=== PATIENT | female | born 1980 | race Caucasian/White ===

== ENCOUNTER 2020-04-28 12:23 | Emergency (ER) | payer OTHER, MEDICAID, SELFPAY ==
[2020-04-28 12:35] VITALS: BP 139/64; PULSE 88; RESP 14; TEMP 36.8; O2SAT 99; BMI 25.8
[2020-04-28 13:04] LABS: Add Manual Diff / Slide Review NO; Basophils Absolute Auto 100 /uL (0-100); Basophils Percent Auto 0.9 % (0-2); Eosinophils Absolute Auto 200 /uL (0-450); Eosinophils Percent Auto 3.3 % (2-4); Hematocrit 38.1 % (36-46); Hemoglobin 12.7 g/dL (12.0-16.0); Lymphocytes Absolute Auto 1200 /uL (1100-4500); Lymphocytes Percent Auto 16.7 % (25-40); Mean Corpuscular HGB Conc 33.3 % (30-36); Mean Corpuscular Hemoglobin 27.3 PG (26-34); Mean Corpuscular Volume 81.9 fL (80-100); Monocytes Absolute Auto 400 /uL (0-900); Monocytes Percent Auto 4.9 % (3-14); Neutrophils Absolute Auto 5300 /uL (1500-7000); Neutrophils Percent Auto 74.2 % (50-75); Platelet Count 191 X10^3/uL (150-400); Red Blood Cell Count 4.65 X10^6/uL (4.0-5.2); Red Cell Distribution Width 14.3 % (11.6-14.8); White Blood Cell Count 7.2 X10^3/uL (4.5-11.0)
[2020-04-28 13:22] LABS: INR 0.9 (0.9-1.3); Prothrombin Time 10.5 SECONDS (10.1-12.7)
[2020-04-28] MEDS: SODIUM CHLORIDE 0.9% 1,000 ML 150 ML IV (13:23)
[2020-04-28 13:25] LABS: Alanine Aminotransferase 19 IU/L (<35); Albumin 4.3 g/dL (3.5-5.0); Albumin Globulin Ratio 1.6 (1.0-2.8); Alkaline Phosphatase 42 U/L (38-126); Aspartate Aminotransferase 25 IU/L (14-36); BUN Creatinine Ratio 29.6 (6-22); Bilirubin Total 0.3 mg/dL (0.2-1.3); Blood Urea Nitrogen 21 mg/dL (7-17); Calcium 9.4 mg/dL (8.4-10.2); Carbon Dioxide 29 mmol/L (22-32); Chloride 105 mmol/L (98-107); Estimated Glomerular Filt Rate > 60.0 mL/min (>60); Globulin 2.7 g/dL (1.7-4.1); Glucose 112 mg/dL (70-100); HEMOLYSIS < 15 (0-50); Lipase 40 U/L (23-300); PTT Partial Thromboplastin Tim 34 SECONDS (26.4-36.2); Potassium 3.8 mmol/L (3.4-5.1); Sodium 139 mmol/L (137-145)
[2020-04-28 13:29] LABS: Lactate (Lactic Acid) 1.1 mmol/L (0.7-2.1)
--- NOTE | 2020-04-28 13:32 | ED.ABDPAIN ---
HPI - Abdominal Pain <Hay Scruggs [facility] - Last Filed: 04/28/20 15:49> General Chief Complaint: Abdominal Pain Stated Complaint: Whole Torso in Pain Time Seen by Provider: 04/28/20 12:54 Source: patient Mode of arrival: Ambulatory Limitations: no limitations History of Present Illness HPI narrative: This is a 40 year female, smoker, who has past medical history significant for substance abuse and alcohol dependency presents to ED with chief complain of abdominal pain. Patient denies associated symptoms as nausea, vomiting, fever or chills. Patient reports pain is mostly in right lower and mid abdomen and describes as sharp, aching, tightness, abdominal fullness and rates as 7/10 and constant. Patient denies chest pain, dyspnea, near syncope, or urinary symptoms. Patient reports has been drinking hard liquor 1/5 last 6 months. Prior to this patient usually drinks daily but not as much this. Patient also reports smoking meth regularly. Patient reports her bowel habits every other day and denies diarrhea or constipation. Patient reports had similar abdominal discomfort in the past for last 2 years and sporadically. Patient denies aggravating or relieving factors. Patient denies via. LMP 3 weeks ago and lasted only for 2 days. Patient reports prior to this she had menstruation 2 month ago. Patient reports usually she is very regular with menstruation and this is unusual for her. She had eaten 1 hour ago pizza and drank water right before coming into ED. last alcohol ingestion noon yesterday. Related Data Allergies Allergy/AdvReac Type Severity Reaction Status Date / Time No Known Drug Allergies Allergy Verified 04/28/20 12:44 Review of Systems <Hay Sheba [facility] - Last Filed: 04/28/20 15:49> Review of Systems Narrative: General: Denies fever, chills, fatigue, malaise, sweats. HEENT: Denies sinus pain, ear pain, sore throat, difficulty swallowing, dizziness. Respiratory: Denies dyspnea, cough, wheezing, hemoptysis, sputum. Cardiovascular: Denies chest pain, palpitations, orthopnea, edema. Gastrointestinal: Denies nausea, vomiting, abdominal pain, diarrhea, constipation, melena. : See HPI Musculoskeletal: Denies weakness, joint pain or bony pain. Skin: Denies rash, skin lesions, or other. Neurologic: Denies weakness, headache, numbness, change in speech, confusion, seizures, incoordination. Psychiatric: No concerning psychosocial issues. 12-point review of systems is negative except for those stated above. Patient History <MICAH Reynaga - Last Filed: 04/28/20 15:49> Social History Smoking Status: Current every day smoker Smoking Status: Current every day smoker alcohol intake frequency: 3 or more drinks per day Alcohol type: hard liquor Substance Use Type: methamphetamine Exam <[facility] MICAH Scruggs - Last Filed: 04/28/20 15:49> Narrative Exam Narrative: GEN: Alert, oriented x 3, well appearing and nourished, and in no acute distress. Head: Normal cephalic, atraumatic. No scalp or temporal tenderness, palpable mass or rash. EYES: Pupils are equal, round, and reactive to light and accommodation. Extraocular muscles are intact bilaterally. There is no subconjunctival hemorrhage, exudate and sclera non-icteric. ENT: Hearing grossly intact. Nose without bleeding, purulent discharge or deviation. Mucous membrane moist, no mucosal lesion. Throat without erythema, tonsillar hypertrophy or exudate. Uvula in midline, airway patent. Neck: Trachea in midline. No JVD, non-tender without lymphadenopathy. No masses or thyroid megaly. Supple, non-tender and no meningeal signs. CARDIAC: Normal regular rate and rhythm without murmurs, gallops, or rubs. No chest wall tenderness. No peripheral edema, cyanosis or pallor. Capillary refill is less than 2 seconds. RESPIRATORY: Lungs are clear to auscultate bilaterally. No cough, wheezes, rales, or rhonchi. No stridor, respiratory distress, increase work of breathing, or accessary muscle used. ABD: Abdomen soft and non-distended. Tender to palpate bilateral lower abdomen, mid right abdomen. No guarding or rebound tenderness to palpate. Bowel sounds are normal in all 4 quadrants. There is no palpable masses or organomegaly. EXT: Full painless ROM of all extremities with no loss of sensation, strength, effusion or edema. SKIN: Warm, dry, normal color for patient. No erythema, lesions or rash over visible areas. BACK: No deformity or crepitance. Right flank tenderness to percuss. NEUROLOGICAL: Alert and oriented to place, time and person. Sensation and motor function intact bilaterally. No facial droops, dysphasia. PSYCHIATRIC: Good judgement and reason, without hallucinations, abnormal affect or abnormal behaviors during the examination. Patient is not suicidal. Initial Vital Signs Initial Vital Signs: Vital Signs Temperature 98.2 F 04/28/20 12:35 Pulse Rate 88 04/28/20 12:35 Respiratory Rate 14 04/28/20 12:35 Blood Pressure 139/64 04/28/20 12:35 Pulse Oximetry 99 04/28/20 12:35 <Ryan Ingram DO - Last Filed: 04/28/20 15:53> Initial Vital Signs Initial Vital Signs: Vital Signs Temperature 98.2 F 04/28/20 12:35 Pulse Rate 88 04/28/20 12:35 Respiratory Rate 14 04/28/20 12:35 Blood Pressure 139/64 04/28/20 12:35 Pulse Oximetry 99 04/28/20 12:35 Scores <Hay UriosteguiJOANA StreetP - Last Filed: 04/28/20 15:49> GCS [place] coma scale eye opening: Spontaneous [place] coma scale verbal response: Orientated [place] coma scale motor response: Obey commands [place] coma scale total score: 15 qSOFA Altered Mental Status (GCS <15): No Respiratory rate greater than/equal to 22: No Systolic blood pressure less than or equal to 100: No qSOFA Total: 0 0-1 Not High Risk 1-3 High risk Course <Hay UriosteguiJOANA CastroP - Last Filed: 04/28/20 15:49> Orders Ordered: ED Orders 04/28/20 12:44 EKG-12 Lead Stat 04/28/20 12:54 Complete Blood Count AUTO DIFF Stat Comprehensive Metabolic Panel Stat Lactate (Lactic Acid) Stat Lipase Stat Partial Thromboplastin Time Stat Prothrombin Time INR Stat 04/28/20 13:35 CT abdomen pelvis w con Stat Discontinued Medications Sodium Chloride (Normal Saline 0.9%) 1,000 mls @ 150 mls/hr IV CONT YAYA Last Infusion: 04/28/20 14:59 Dose: 150 mls/hr Documented by: Admin: 04/28/20 13:23 Dose: 150 mls/hr Documented by: CHANELL Reevaluation(s) Reevaluation #1: Dr. Shepard ([facility]) called to inform incidental finding of moderate left common iliac artery stenosis. Patient denies leg pain at rest or with ambulation or exertions at this time. Patient reports decreasing sensation at times. Patient informed of CT findings of above and advised to follow up with primary care physician and further evaluation for moderate left common iliac artery stenosis which would progress. Patient advised to decrease meth, alcohol, smoking to help with this condition. Time: 14:10 Vital Signs Vital signs: Vital Signs - 8 hr 04/28/20 12:35 04/28/20 15:00 Temperature 98.2 F Pulse Rate 88 80 Respiratory Rate 14 Blood Pressure 139/64 123/61 Pulse Oximetry 99 100 <Ryan Ingram DO - Last Filed: 04/28/20 15:53> Orders Ordered: ED Orders 04/28/20 12:44 EKG-12 Lead Stat 04/28/20 12:54 Complete Blood Count AUTO DIFF Stat Comprehensive Metabolic Panel Stat Lactate (Lactic Acid) Stat Lipase Stat Partial Thromboplastin Time Stat Prothrombin Time INR Stat 04/28/20 13:35 CT abdomen pelvis w con Stat Discontinued Medications Sodium Chloride (Normal Saline 0.9%) 1,000 mls @ 150 mls/hr IV CONT YAYA Last Infusion: 04/28/20 14:59 Dose: 150 mls/hr Documented by: Admin: 04/28/20 13:23 Dose: 150 mls/hr Documented by: CHANELL Vital Signs Vital signs: Vital Signs - 8 hr 04/28/20 12:35 04/28/20 15:00 Temperature 98.2 F Pulse Rate 88 80 Respiratory Rate 14 Blood Pressure 139/64 123/61 Pulse Oximetry 99 100 MDM - Abdominal Pain <MICAH Reynaga - Last Filed: 04/28/20 15:49> Differential Diagnosis Differential diagnosis: Likely abdominal pain, acute appendicitis, calculus of kidney, constipation, small bowel obstruction and other (Hepatic disease, gallbladder disease, kidney infection) Medical Records Attestation: I reviewed the patient's medical records. Lab Data Attestation: I reviewed the patient's lab results. Result diagrams: 04/28/20 12:54 04/28/20 12:54 Labs: Lab Results 04/28/20 04/28/20 04/28/20 Range/Units 12:54 12:54 12:54 WBC 7.2 (4.5-11.0) X10^3/uL RBC 4.65 (4.0-5.2) X10^6/uL Hgb 12.7 (12.0-16.0) g/dL Hct 38.1 (36-46) % MCV 81.9 (80-100) fL MCH 27.3 (26-34) PG MCHC 33.3 (30-36) % RDW 14.3 (11.6-14.8) % Plt Count 191 (150-400) X10^3/uL Neut % (Auto) 74.2 (50-75) % Lymph % (Auto) 16.7 L (25-40) % Will % (Auto) 4.9 (3-14) % Eos % (Auto) 3.3 (2-4) % Baso % (Auto) 0.9 (0-2) % Neut # (Auto) 5300 (3480-3124) /uL Lymph # (Auto) 1200 (3046-8535) /uL Will # (Auto) 400 (0-900) /uL Eos # (Auto) 200 (0-450) /uL Baso # (Auto) 100 (0-100) /uL PT 10.5 (10.1-12.7) SECONDS INR 0.9 (0.9-1.3) APTT 34 (26.4-36.2) SECONDS Sodium 139 (137-145) mmol/L Potassium 3.8 (3.4-5.1) mmol/L Chloride 105 (98-107) mmol/L Carbon Dioxide 29 (22-32) mmol/L BUN 21 H (7-17) mg/dL Creatinine 0.71 (0.52-1.04) mg/dL Estimated GFR > 60.0 (>60) mL/min BUN/Creatinine Ratio 29.6 H (6-22) Glucose 112 H (70-100) mg/dL Lactate (0.7-2.1) mmol/L Calcium 9.4 (8.4-10.2) mg/dL Total Bilirubin 0.3 (0.2-1.3) mg/dL AST 25 (14-36) IU/L ALT 19 (<35) IU/L Alkaline Phosphatase 42 (38-126) U/L Total Protein 7.0 (6.3-8.2) g/dL Albumin 4.3 (3.5-5.0) g/dL Globulin 2.7 (1.7-4.1) g/dL Albumin/Globulin Ratio 1.6 (1.0-2.8) Lipase 40 (23-300) U/L 12// Range/Units 12:54 WBC (4.5-11.0) X10^3/uL RBC (4.0-5.2) X10^6/uL Hgb (12.0-16.0) g/dL Hct (36-46) % MCV (80-100) fL MCH (26-34) PG MCHC (30-36) % RDW (11.6-14.8) % Plt Count (150-400) X10^3/uL Neut % (Auto) (50-75) % Lymph % (Auto) (25-40) % Will % (Auto) (3-14) % Eos % (Auto) (2-4) % Baso % (Auto) (0-2) % Neut # (Auto) (8169-5672) /uL Lymph # (Auto) (9275-2464) /uL Will # (Auto) (0-900) /uL Eos # (Auto) (0-450) /uL Baso # (Auto) (0-100) /uL PT (10.1-12.7) SECONDS INR (0.9-1.3) APTT (26.4-36.2) SECONDS Sodium (137-145) mmol/L Potassium (3.4-5.1) mmol/L Chloride (98-107) mmol/L Carbon Dioxide (22-32) mmol/L BUN (7-17) mg/dL Creatinine (0.52-1.04) mg/dL Estimated GFR (>60) mL/min BUN/Creatinine Ratio (6-22) Glucose (70-100) mg/dL Lactate 1.1 (0.7-2.1) mmol/L Calcium (8.4-10.2) mg/dL Total Bilirubin (0.2-1.3) mg/dL AST (14-36) IU/L ALT (<35) IU/L Alkaline Phosphatase (38-126) U/L Total Protein (6.3-8.2) g/dL Albumin (3.5-5.0) g/dL Globulin (1.7-4.1) g/dL Albumin/Globulin Ratio (1.0-2.8) Lipase (23-300) U/L Point of care testing: Point of Care Testing Test Results Negative Urine Dip Bedside Urine Glucose Negative Bedside Urine Bilirubin - Negative Bedside Urine Ketone - Negative Urine Specific Burkett 1.025 Bedside Urine Occult Blood - Negative Bedside Urine Protein - Negative Bedside Urine Urobilinogen - Negative Bedside Urine Nitrite - Negative Bedside Urine Leukocytes - Negative Esterase Imaging Data CT scan - abdomen/pelvis: Radiologist's Impression: Shabbir Ibarra 40 F [address] [id number] Scan ReportSigned Patient: Shabbir Ibarra LMR#: [id number]: 1980Acct:[id number]/Sex: 40 / FDate of Service: 04/28/20Loc: EDAccession Number: [id number] Procedure: CT abdomen pelvis w con Ordering Provider: Hay Scruggs PROCEDURE: CT ABDOMEN PELVIS W CON INDICATIONS: bilateral lower abd and right upper/mid abd pain TECHNIQUE: After the administration of intravenous contrast, 5 mm thick sections acquired from the diaphragm to the symphysis. 5 mm coronal and sagittal reformats were acquired. For radiation dose reduction, the following was used: automated exposure control, adjustment of mA and/or kV according to patient size. COMPARISON: None. FINDINGS: Image quality: Excellent. ABDOMEN: Lung bases: Lung bases are clear. Heart size is normal. Solid organs: Liver is normal in size and enhancement. Gallbladder is contracted, within normal limits. Biliary system is non dilated. Pancreas enhances normally. Spleen is normal in size and enhancement. No adrenal nodules. Kidneys demonstrate normal size and enhancement, without hydronephrosis. Peritoneum and bowel: Bowel loops demonstrate normal wall thickness and caliber. Physiologic fluid in the pelvis. No free air or abscess. Large amount of fecal debris throughout the colon. Fecalized small bowel contents. Nodes and vessels: No retroperitoneal or mesenteric adenopathy by size criteria. Aorta and inferior vena cava are normal in size. Incidental note made moderate left common iliac artery stenosis. Miscellaneous: No ventral hernias. PELVIS: Genitourinary: Bladder wall thickness is normal. Miscellaneous: Tiny bilateral inguinal hernias containing fat. No inguinal adenopathy. Bones: No suspicious bony lesions. No vertebral body compression fractures. IMPRESSION: 1. Large fecal load and fecalization bowel contents is consistent with constipation and slow bowel transit. 2. Note made of moderate left common iliac artery stenosis. Question: Does this young patient lifestyle limiting claudication? 3. Minimal bilateral inguinal hernias containing fat. 4. No evidence of acute abdominal process. Dictated by: Scott Perez M.D. on 04/28/2020 at 13:51 Approved by: Scott Perez M.D. on 04/28/2020 at 14:00 ECG Data Attestation: I personally reviewed and interpreted this ECG as follows: Prior ECG tracings: not available for review Interpretation: Normal sinus rhythm rate at 71. Normal axis. GA interval 180, QRS duration 82, QT/QTC 388/[address] changes. MDM Narrative Medical decision making narrative: This is a 40 year female who presents to ED with her son with chief complain of generalized abdominal pain which is tender to palpate, right flank pain without much associated symptoms. Abdomen tender to palpate in bilateral lower and right mid and upper quadrant pain. Patient has been drinking alcohol 1/5th daily for last 6 months and smokes meth regularly. Patient does not appears to be toxic. She is in afebrile with within normal vital signs. No leukocytosis. Negative and lactate. Chemistry indicates mild dehydration with elevated BUN of 21 and BUN/creatinine ratio of 29.6. Slightly elevated nonfasting glucose of 112. Within normal liver function test and kidney function test. Lipase was normal. Urine test was negative for and infection. CT of abdomen and pelvis indicates constipation and incidental finding of moderate left common iliac artery stenosis. There is minimal bilateral inguinal hernia containing fat as well. Patient denies leg pain at rest or with exertion. Patient advised to increase fiber, oral hydration, activity and try [id number] magnesium citrate and or MiraLax to prevent and manage constipation. Strict return precautions were discussed with patient and informed patient to follow-up in outpatient setting for moderate left common iliac artery stenosis with PCP. Patient verbalized understanding in agreement with the treatment plan. <Ryan Ingram, DO - Last Filed: 04/28/20 15:53> Lab Data Labs: Lab Results 04/28/20 04/28/20 04/28/20 Range/Units 12:54 12:54 12:54 WBC 7.2 (4.5-11.0) X10^3/uL RBC 4.65 (4.0-5.2) X10^6/uL Hgb 12.7 (12.0-16.0) g/dL Hct 38.1 (36-46) % MCV 81.9 (80-100) fL MCH 27.3 (26-34) PG MCHC 33.3 (30-36) % RDW 14.3 (11.6-14.8) % Plt Count 191 (150-400) X10^3/uL Neut % (Auto) 74.2 (50-75) % Lymph % (Auto) 16.7 L (25-40) % Will % (Auto) 4.9 (3-14) % Eos % (Auto) 3.3 (2-4) % Baso % (Auto) 0.9 (0-2) % Neut # (Auto) 5300 (8413-9718) /uL Lymph # (Auto) 1200 (1895-7441) /uL Will # (Auto) 400 (0-900) /uL Eos # (Auto) 200 (0-450) /uL Baso # (Auto) 100 (0-100) /uL PT 10.5 (10.1-12.7) SECONDS INR 0.9 (0.9-1.3) APTT 34 (26.4-36.2) SECONDS Sodium 139 (137-145) mmol/L Potassium 3.8 (3.4-5.1) mmol/L Chloride 105 (98-107) mmol/L Carbon Dioxide 29 (22-32) mmol/L BUN 21 H (7-17) mg/dL Creatinine 0.71 (0.52-1.04) mg/dL Estimated GFR > 60.0 (>60) mL/min BUN/Creatinine Ratio 29.6 H (6-22) Glucose 112 H (70-100) mg/dL Lactate (0.7-2.1) mmol/L Calcium 9.4 (8.4-10.2) mg/dL Total Bilirubin 0.3 (0.2-1.3) mg/dL AST 25 (14-36) IU/L ALT 19 (<35) IU/L Alkaline Phosphatase 42 (38-126) U/L Total Protein 7.0 (6.3-8.2) g/dL Albumin 4.3 (3.5-5.0) g/dL Globulin 2.7 (1.7-4.1) g/dL Albumin/Globulin Ratio 1.6 (1.0-2.8) Lipase 40 (23-300) U/L 12// Range/Units 12:54 WBC (4.5-11.0) X10^3/uL RBC (4.0-5.2) X10^6/uL Hgb (12.0-16.0) g/dL Hct (36-46) % MCV (80-100) fL MCH (26-34) PG MCHC (30-36) % RDW (11.6-14.8) % Plt Count (150-400) X10^3/uL Neut % (Auto) (50-75) % Lymph % (Auto) (25-40) % Will % (Auto) (3-14) % Eos % (Auto) (2-4) % Baso % (Auto) (0-2) % Neut # (Auto) (8421-4462) /uL Lymph # (Auto) (4981-1787) /uL Will # (Auto) (0-900) /uL Eos # (Auto) (0-450) /uL Baso # (Auto) (0-100) /uL PT (10.1-12.7) SECONDS INR (0.9-1.3) APTT (26.4-36.2) SECONDS Sodium (137-145) mmol/L Potassium (3.4-5.1) mmol/L Chloride (98-107) mmol/L Carbon Dioxide (22-32) mmol/L BUN (7-17) mg/dL Creatinine (0.52-1.04) mg/dL Estimated GFR (>60) mL/min BUN/Creatinine Ratio (6-22) Glucose (70-100) mg/dL Lactate 1.1 (0.7-2.1) mmol/L Calcium (8.4-10.2) mg/dL Total Bilirubin (0.2-1.3) mg/dL AST (14-36) IU/L ALT (<35) IU/L Alkaline Phosphatase (38-126) U/L Total Protein (6.3-8.2) g/dL Albumin (3.5-5.0) g/dL Globulin (1.7-4.1) g/dL Albumin/Globulin Ratio (1.0-2.8) Lipase (23-300) U/L Point of care testing: Point of Care Testing Test Results Negative Urine Dip Bedside Urine Glucose Negative Bedside Urine Bilirubin - Negative Bedside Urine Ketone - Negative Urine Specific Burkett 1.025 Bedside Urine Occult Blood - Negative Bedside Urine Protein - Negative Bedside Urine Urobilinogen - Negative Bedside Urine Nitrite - Negative Bedside Urine Leukocytes - Negative Esterase Discharge Plan Departure Patient Disposition: Home Clinical Impression: Iliac artery stenosis, left Abdominal pain Qualifiers: Abdominal location: unspecified location Qualified Code(s): R10.9 - Unspecified abdominal pain Constipation Qualifiers: Constipation type: unspecified constipation type Qualified Code(s): K59.00 - Constipation, unspecified Instructions: DI for Abdominal Pain-Adult, DI for Constipation Activity Restrictions/Additional Instructions: You have been diagnosed with [abdominal pain likely from constipation. Labs are assuring including urine test. Urine test Was negative. Abdomen/pelvis CT test indicates constipation, tiny fat containing inguinal hernia. Incidental finding of moderate left common iliac artery stenosis which can cause left leg pain with working out, or ambulation. Currently you do not have pain with the activities or at rest but this should be followed up in outpatient setting that can be arranged by primary care provider.]. What to do: *Take your medications as directed. Please try use magnesium citrate and or MiraLax until you have good bowel movements. Please increase oral hydration and fiber in her diet. Please refrain from using alcohol and drugs. *Follow up with your primary care provider in 2-3 days, call for an appointment. Let them know you were seen in the ED and that we asked you to be seen in follow up. *Return to ED if you have any new, worsening, or concerning symptoms, such as [chest pain, breathing difficulty, unable to tolerate fluids, fever, worsening pain, or any acute concerns]. Referrals: [facility] Resources [Outside] <Ryan Ingram, DO - Last Filed: 04/28/20 15:53> [facility] Attestation: Dr Ingram Co-Sign Statement: I was available for consultation during this patient's emergency department visit. This chart is signed by myself for administrative purposes only. I did not have direct contact with this patient during this visit. They were seen independently by the APC.
--- NOTE | 2020-04-28 13:35 | DI.CT.S_ITS ---
PROCEDURE: CT ABDOMEN PELVIS W CON INDICATIONS: bilateral lower abd and right upper/mid abd pain TECHNIQUE: After the administration of intravenous contrast, 5 mm thick sections acquired from the diaphragm to the symphysis. 5 mm coronal and sagittal reformats were acquired. For radiation dose reduction, the following was used: automated exposure control, adjustment of mA and/or kV according to patient size. COMPARISON: None. FINDINGS: Image quality: Excellent. ABDOMEN: Lung bases: Lung bases are clear. Heart size is normal. Solid organs: Liver is normal in size and enhancement. Gallbladder is contracted, within normal limits. Biliary system is non dilated. Pancreas enhances normally. Spleen is normal in size and enhancement. No adrenal nodules. Kidneys demonstrate normal size and enhancement, without hydronephrosis. Peritoneum and bowel: Bowel loops demonstrate normal wall thickness and caliber. Physiologic fluid in the pelvis. No free air or abscess. Large amount of fecal debris throughout the colon. Fecalized small bowel contents. Nodes and vessels: No retroperitoneal or mesenteric adenopathy by size criteria. Aorta and inferior vena cava are normal in size. Incidental note made moderate left common iliac artery stenosis. Miscellaneous: No ventral hernias. PELVIS: Genitourinary: Bladder wall thickness is normal. Miscellaneous: Tiny bilateral inguinal hernias containing fat. No inguinal adenopathy. Bones: No suspicious bony lesions. No vertebral body compression fractures. IMPRESSION: 1. Large fecal load and fecalization bowel contents is consistent with constipation and slow bowel transit. 2. Note made of moderate left common iliac artery stenosis. Question: Does this young patient lifestyle limiting claudication? 3. Minimal bilateral inguinal hernias containing fat. 4. No evidence of acute abdominal process. Dictated by: Scott Perez M.D. on 04/28/2020 at 13:51 Approved by: Scott Perez M.D. on 04/28/2020 at 14:00
[2020-04-28 15:00] VITALS: BP 123/61; PULSE 80; O2SAT 100
== END 2020-04-28 15:01 | disposition home or self-care (01) ==
PROVIDERS: Emergency Medicine; Emergency Provider Nurse Practitioner Family
DX: I77.1 Stricture of artery (principal); R10.9 Unspecified abdominal pain; K59.00 Constipation, unspecified
CPT/HCPCS: 36415; 74177; 80053; 81003; 81025; 83605; 83690; 85025; 85610; 85730; 93005; 93010; 96360; 96361; 99284

== ENCOUNTER 2020-09-03 08:49 | Emergency (ER) | payer OTHER, MEDICAID, SELFPAY ==
[2020-09-03 09:13] VITALS: BP 122/59; BP 122/69; PULSE 80; RESP 12; RESP 16; TEMP 36.7; TEMP 37.2; O2SAT 97
--- NOTE | 2020-09-03 09:13 | ED.EXTPRO ---
HPI - Extremity Problem General Chief complaint: Extremity Injury, Lower Stated complaint: Left foot pinky toe blister Time Seen by Provider: 09/03/20 09:10 Source: patient Mode of arrival: Ambulatory Limitations: no limitations History of Present Illness HPI Narrative: This is a 40-year-old female comes with complaint of left pinky toe pain as well as swelling and a blister between the 5th and 4th digits on her left foot. Patient states that she noticed itching recently she has been using Lotrimin spray the last 3 or 4 days with no improvement in the itching. She states that she developed a blister on the inside of her toe and today noticed some redness of the toe as well as spreading onto the dorsum of her foot. She had some sensation of numbness and tingling in that area as well. Patient states uncomfortable to walk. She denies any skin infections in the past. She denies any medical issues. She denies any diabetes or sugar issues. She is not on any medications regularly. She does smoke daily. Patient does not have a primary care physician she follows with regularly. Patient states her tetanus is up-to-date. She does not recall any trauma or injuries. She did note a little bit of breakdown of the skin prior to the development of her blister. Related Data Previous Rx's Medication Instructions Recorded sulfamethoxazole-trimethoprim 1 tab PO Q12H #14 tab 09/03/20 [Bactrim DS] Allergies Allergy/AdvReac Type Severity Reaction Status Date / Time No Known Drug Allergies Allergy Verified 04/28/20 12:44 Review of Systems Review of Systems ROS Unobtainable: All systems reviewed & are unremarkable except as noted in HPI and below Patient History Social History Smoking Status: Current every day smoker Smoking Status: Current every day smoker alcohol intake frequency: 3 or more drinks per day Alcohol type: hard liquor Substance Use Type: methamphetamine Exam Narrative Exam Narrative: GENERAL: Alert and oriented x three, well-nourished female in mild distress. HEENT: Head normocephalic, atraumatic, EOMI, pupils reactive, face symmetric, moist mucous membranes NECK: Supple, full range of motion CARDIOVASCULAR: Regular rate and rhythm without murmurs, rubs or gallops. RESPIRATORY: Breath sounds equal bilaterally, no wheezes rales or rhonchi. ABDOMEN: Soft, nontender. Normoactive bowel sounds all 4 quadrants. No guarding or rebound, rigidity, no mass EXTREMITIES: Normal range of motion, no clubbing. Neurovascularly intact. No specific bony tenderness but patient is tender in the 5th digit of her left foot. No obvious deformity. There is some mild erythema of the 5th digit as well as about 3 cm extending towards the dorsum of the foot. Patient has some breakdown and scalloping of the skin on the lateral side of the 4th digit as well as some swelling and a blister with fluctuance and what appears to be purulence white fluid within the blister on the medial side of the 5th digit. Patient does have tenderness between the toes. There is no active drainage at this time. NEUROLOGICAL: Cranial nerves II through XII grossly intact. Moving all extremities SKIN: Warm, dry, no petechiae, no rashes or lesions otherwise noted. Initial Vital Signs Initial Vital Signs: Vital Signs Temperature 98.0 F 09/03/20 09:13 Pulse Rate 80 09/03/20 09:13 Respiratory Rate 12 09/03/20 09:13 Blood Pressure 122/69 09/03/20 09:13 Pulse Oximetry 97 09/03/20 09:13 Procedures Abscess I/D I&D #1: Site: other (abscess between 4/5 digits on left foot.) Local Anesthetic: other anesthetic (Topical prilocaine ) Technique: needle aspiration Amount of fluid expressed (mL): 0.25 Irrigation: Yes Course Orders Ordered: Discontinued Medications Lidocaine/Prilocaine (Lidocaine/Prilocaine 5 Gm) 5 gm TOP NOW ONE Stop: 09/03/20 09:19 Last Admin: 09/03/20 09:22 Dose: 5 gm Documented by: WILL Vital Signs Vital signs: Vital Signs - 8 hr 09/03/20 10:48 Pulse Rate 63 Respiratory Rate 18 Blood Pressure 133/63 Pulse Oximetry 97 MDM - Extremity (Nontraumatic) Imaging Data Extremity x-ray #1: Radiologist's Impression: [address] [id number] ReportSigned Patient: Shabbir Ibarra LMR#: [id number]: 1980Acct:[id number]/Sex: 40 / FDate of Service: 09/03/20Loc: EDAccession Number: [id number] Procedure: XR toe LT min 2V Ordering Provider: Ivon Sellers D.O. PROCEDURE: XR TOE LT MIN 2V INDICATIONS: 5th toe, swelling, redness, ? trauma, + infection TECHNIQUE: 3 views of the 5th toe(s) acquired. COMPARISON: None. FINDINGS: Bones: No fractures or dislocations. No suspicious bony lesions. There is mild hallux valgus with mild degenerative changes of the 1st metatarsophalangeal joint. Soft tissues: Mild soft tissue swelling along the lateral aspect of the foot along the proximal aspect of the 5th toe. There is mild soft tissue prominence overlying the distal 1st metatarsal. IMPRESSION: Mild soft tissue swelling overlying the 5th digit without underlying acute osseous abnormality. Mild hallux valgus with mild degenerative changes of the 1st metatarsophalangeal joint and soft tissue bunion formation. Dictated by: Ryley Perea D.O. on 09/03/2020 at 8:32 Approved by: Ryley Perea D.O. on 09/03/2020 at 8:38 MDM Narrative Medical decision making narrative: 40-year-old female with fluctuant fluid filled blister that appears to be purulence with a likely bacterial infection that developed from a tinea pedis. Patient did not have any known trauma but is significantly tender an x-ray was ordered as she has some erythema and cellulitis tracking up her foot. Patient a topical xylocaine and the blister was lanced to allow drainage. Patient was started on oral antibiotics. We also discussed that she should allow the foot to be open to air, to wear open toed shoes and at most cotton socks which are changed regularly to improve healing. Discharge Plan Departure Patient Disposition: Home Clinical Impression: Cellulitis and abscess of toe of left foot Instructions: DI for Cellulitis -- Adult Activity Restrictions/Additional Instructions: Follow up in the next 5-7 days if you are not having significant improvement. May take Tylenol up to a 1000 mg every 8 hours and or ibuprofen up to 800 mg every 8 hours. Take antibiotics until completely gone. Prescription to [facility] in [place] You may soak area 1-2 times daily. Keep the area open to air and use either open toed shoes. If you need to wear sockscotton is preferred Return for fevers greater 100.4 F, increasing redness, swelling, rapidly worsening pain, increasing drainage, new discoloration such as pallor or cyanosis/white or blue discoloration, new numbness, weakness or other new or concerning symptoms. Prescriptions: New sulfamethoxazole-trimethoprim [Bactrim DS] 800-160 mg tablet 1 tab PO Q12H Qty: 14 RF: 0
--- NOTE | 2020-09-03 09:18 | DI.RAD.S_ITS ---
PROCEDURE: XR TOE LT MIN 2V INDICATIONS: 5th toe, swelling, redness, ? trauma, + infection TECHNIQUE: 3 views of the 5th toe(s) acquired. COMPARISON: None. FINDINGS: Bones: No fractures or dislocations. No suspicious bony lesions. There is mild hallux valgus with mild degenerative changes of the 1st metatarsophalangeal joint. Soft tissues: Mild soft tissue swelling along the lateral aspect of the foot along the proximal aspect of the 5th toe. There is mild soft tissue prominence overlying the distal 1st metatarsal. IMPRESSION: Mild soft tissue swelling overlying the 5th digit without underlying acute osseous abnormality. Mild hallux valgus with mild degenerative changes of the 1st metatarsophalangeal joint and soft tissue bunion formation. Dictated by: Ryley Perea D.O. on 09/03/2020 at 8:32 Approved by: Ryley Perea D.O. on 09/03/2020 at 8:38
[2020-09-03] MEDS: LIDOCAINE/PRILOCAINE 5 GM TOP (09:22)
--- NOTE | 2020-09-03 09:44 | PC.NURSE ---
Patient reports placing her boot on about 5 days ago feeling sharp pain in between 4th and 5th toe. Pain continues to get worse. Redness noted to top of foot by fifth digit. Small abscess noted in between 4th/5th
[2020-09-03 10:48] VITALS: BP 133/63; PULSE 63; RESP 18; O2SAT 97
== END 2020-09-03 10:48 | disposition home or self-care (01) ==
PROVIDERS: Emergency Provider Emergency Medicine
DX: L03.032 Cellulitis of left toe (principal)
CPT/HCPCS: 10060; 73660; 99282; 99283

== ENCOUNTER 2020-11-01 17:00 | Emergency (ER) | payer OTHER, MEDICAID, SELFPAY ==
[2020-11-01 17:04] VITALS: BP 125/70; PULSE 86; RESP 20; TEMP 36.8; O2SAT 97; BMI 23.6
[2020-11-01 17:45] LABS: Amorphous Sediment Urine 1+; Bacteria Urine Many (>30); Culture Indicated Urine Specimen Cultured; Mucus Urine 1+ (Negative); RBC Urine 0-1/HPF (0-5/HPF); Squamous Epithelial Cell Urine 0-1 /HPF (0-5/HPF); WBC Urine 10-30/HPF (0-5/HPF)
== END 2020-11-01 18:40 | disposition left against medical advice (07) ==
PROVIDERS: Emergency Provider Emergency Medicine
DX: R39.9 Unspecified symptoms and signs involving the genitourinary system (principal)
CPT/HCPCS: 81003; 81015; 87077; 87086; 87186; 99281

== ENCOUNTER 2020-11-16 10:27 | Emergency (ER) | payer OTHER, MEDICAID, SELFPAY ==
[2020-11-16 11:16] VITALS: BP 135/87; PULSE 78; RESP 17; TEMP 36.6; O2SAT 96
[2020-11-16 11:41] LABS: Add Manual Diff / Slide Review NO; Basophils Absolute Auto 0 /uL (0-100); Basophils Percent Auto 0.5 % (0-2); Eosinophils Absolute Auto 200 /uL (0-450); Eosinophils Percent Auto 2.1 % (2-4); Hematocrit 37.5 % (36-46); Hemoglobin 12.3 g/dL (12.0-16.0); Lymphocytes Absolute Auto 900 /uL (1100-4500); Lymphocytes Percent Auto 12.7 % (25-40); Mean Corpuscular HGB Conc 32.9 % (30-36); Mean Corpuscular Hemoglobin 26.9 PG (26-34); Mean Corpuscular Volume 81.8 fL (80-100); Monocytes Absolute Auto 400 /uL (0-900); Neutrophils Absolute Auto 5700 /uL (1500-7000); Neutrophils Percent Auto 78.7 % (50-75); Platelet Count 181 X10^3/uL (150-400); Red Blood Cell Count 4.58 X10^6/uL (4.0-5.2); Red Cell Distribution Width 14.4 % (11.6-14.8); White Blood Cell Count 7.2 X10^3/uL (4.5-11.0)
[2020-11-16 11:56] LABS: Alanine Aminotransferase 26 IU/L (<35); Albumin 4.6 g/dL (3.5-5.0); Albumin Globulin Ratio 1.5 (1.0-2.8); Alkaline Phosphatase 53 U/L (38-126); Aspartate Aminotransferase 31 IU/L (14-36); BUN Creatinine Ratio 20.3 (6-22); Bilirubin Total 0.6 mg/dL (0.2-1.3); Blood Urea Nitrogen 15 mg/dL (7-17); Calcium 9.5 mg/dL (8.4-10.2); Carbon Dioxide 28 mmol/L (22-32); Chloride 104 mmol/L (98-107); Creatine Kinase 170 U/L (30-135); Estimated Glomerular Filt Rate > 60.0 mL/min (>60); Globulin 3.1 g/dL (1.7-4.1); Glucose 101 mg/dL (70-100); HEMOLYSIS < 15 (0-50); Potassium 3.3 mmol/L (3.4-5.1); Sodium 139 mmol/L (137-145); Total Protein 7.7 g/dL (6.3-8.2)
[2020-11-16] MEDS: SODIUM CHLORIDE 0.9% 1,000 ML 1000 ML IV (11:56)
--- NOTE | 2020-11-16 12:43 | ED_ITS ---
HPI - Female Genitourinary General Chief complaint: Urogenital-Female Stated complaint: heat exhaustion over weekend/kidney pain Time Seen by Provider: 11/16/20 12:39 Source: patient Mode of arrival: Ambulatory Limitations: no limitations History of Present Illness HPI Narrative: This is a 32-year-old female who comes in with concern for heat exhaustion over the weekend and back/kidney pain. Patient states she normally is a heavy drinker. She drinks about 0.5 gal per day. She was sitting outside in the heat throughout the weekend drinking regularly and passed out on Saturday. She does not remember the majority of the day. She states she was quite dehydrated some put her in the shower to call her off. She was ill for several days P brown yesterday but has subsequently improved. She has been drinking a lot of fluids and her P has return to clear. She has continued to have some back/kidney pain. She states she is also in the process of decreasing her alcohol intake and had about half the normal amount yesterday with little bit of the shakes. She states she feels able to taper herself at home. Patient denies fevers or chills. No chest pain or shortness of breath. No nausea or vomiting. She denies any dysuria but has had some frequency and thought she had a UTI about 2 weeks ago with UTI type symptoms at that time. She has had normal bowel movements. Patient denies any other major medical issues. She denies any daily medications. Related Data Previous Rx's Medication Instructions Recorded cephalexin 500 mg capsule 500 mg PO BID #10 cap 11/16/20 Allergies Allergy/AdvReac Type Severity Reaction Status Date / Time No Known Drug Allergies Allergy Verified 11/16/20 11:21 Review of Systems Review of Systems ROS Unobtainable: All systems reviewed & are unremarkable except as noted in HPI and below Patient History tobacco type: cigarettes alcohol intake frequency: 3 or more drinks per day Alcohol type: hard liquor Last Alcoholic Drink: yesterday Substance Use Type: does not use and methamphetamine Exam Narrative Exam Narrative: GENERAL: Alert and oriented x three, female in mild distress. HEENT: Head normocephalic, atraumatic, EOMI, pupils reactive, face symmetric, moist mucous membranes NECK: Supple, full range of motion CARDIOVASCULAR: Regular rate and rhythm without murmurs, rubs or gallops. RESPIRATORY: Breath sounds equal bilaterally, no wheezes rales or rhonchi. ABDOMEN: Soft, nontender. Normoactive bowel sounds all 4 quadrants. No guarding or rebound, rigidity, no mass : No CVA tenderness bilaterally EXTREMITIES: Normal range of motion, no clubbing or edema. Neurovascularly intact NEUROLOGICAL: Cranial nerves II through XII grossly intact. Moving all extremities SKIN: Warm, dry, no petechiae, no rashes or lesions. Initial Vital Signs Initial Vital Signs: Vital Signs Temperature 98 F 11/16/20 11:16 Pulse Rate 78 11/16/20 11:16 Respiratory Rate 17 11/16/20 11:16 Blood Pressure 135/87 11/16/20 11:16 Pulse Oximetry 96 11/16/20 11:16 Course Orders Ordered: Discontinued Medications Sodium Chloride (Normal Saline 0.9%) 1,000 mls @ 1,000 mls/hr IV BOLUS ONE Stop: 11/16/20 12:03 Last Infusion: 11/16/20 12:29 Dose: 0 mls/hr Documented by: Admin: 11/16/20 11:56 Dose: 1,000 mls/hr Documented by: FROY Vital Signs Vital signs: Vital Signs - 8 hr 11/16/20 11:16 Temperature 98 F Pulse Rate 78 Respiratory Rate 17 Blood Pressure 135/87 Pulse Oximetry 96 MDM - Female Genitourinary Lab Data Result diagrams: 11/16/20 11:36 11/16/20 11:36 Labs: Lab Results 11/16/20 11/16/20 11/16/20 Range/Units 10:45 11:36 11:36 WBC 7.2 (4.5-11.0) X10^3/uL RBC 4.58 (4.0-5.2) X10^6/uL Hgb 12.3 (12.0-16.0) g/dL Hct 37.5 (36-46) % MCV 81.8 (80-100) fL MCH 26.9 (26-34) PG MCHC 32.9 (30-36) % RDW 14.4 (11.6-14.8) % Plt Count 181 (150-400) X10^3/uL Neut % (Auto) 78.7 H (50-75) % Lymph % (Auto) 12.7 L (25-40) % [place] % (Auto) 6.0 (3-14) % Eos % (Auto) 2.1 (2-4) % Baso % (Auto) 0.5 (0-2) % Neut # (Auto) 5700 (8436-9217) /uL Lymph # (Auto) 900 L (0433-7596) /uL [place] # (Auto) 400 (0-900) /uL Eos # (Auto) 200 (0-450) /uL Baso # (Auto) 0 (0-100) /uL Sodium 139 (137-145) mmol/L Potassium 3.3 L (3.4-5.1) mmol/L Chloride 104 (98-107) mmol/L Carbon Dioxide 28 (22-32) mmol/L BUN 15 (7-17) mg/dL Creatinine 0.74 (0.52-1.04) mg/dL Estimated GFR > 60.0 (>60) mL/min BUN/Creatinine Ratio 20.3 (6-22) Glucose 101 H (70-100) mg/dL Calcium 9.5 (8.4-10.2) mg/dL Total Bilirubin 0.6 (0.2-1.3) mg/dL AST 31 (14-36) IU/L ALT 26 (<35) IU/L Alkaline Phosphatase 53 (38-126) U/L Total Creatine Kinase 170 H (30-135) U/L Total Protein 7.7 (6.3-8.2) g/dL Albumin 4.6 (3.5-5.0) g/dL Globulin 3.1 (1.7-4.1) g/dL Albumin/Globulin Ratio 1.5 (1.0-2.8) Urine RBC 1-5/hpf (0-5/HPF) Urine WBC 30-100/hpf H (0-5/HPF) Ur Squamous Epith Cells 10-30 /hpf H D (0-5/HPF) Urine Bacteria Many (>30) H (None) Ur Culture Indicated? Cult not indicated Point of Care Testing Test Results Negative Urine Dip Bedside Urine Glucose Negative Bedside Urine Bilirubin - Negative Bedside Urine Ketone - Negative Urine Specific [place] 1.030 Bedside Urine Occult Blood - Negative Bedside Urine pH 6.0 Bedside Urine Protein - Negative Bedside Urine Urobilinogen - Negative Bedside Urine Nitrite + Positive Bedside Urine Leukocytes - Negative Esterase MDM Narrative Medical decision making narrative: This is a 40-year-old female comes emergency department with likely heat exhaustion which has since been improving. Patient appears medically stable here. She is wishing to quit drinking but does not wish for any assistance at this time and feels that she is able to handle this on her own at home. She does not appear to be any significant withdrawal at the moment. Her urine is suspicious for UTI with nitrates and patient was having symptoms in the last 2 weeks. Started on oral antibiotic prescription was sent. All questions answered. Return precautions discussed. Patient is aware that she may return for assistance with her alcohol sensation at any time. Discharge Plan Departure Patient Disposition: Home Clinical Impression: Urinary tract infection Instructions: DI for Urinary Tract Infection (UTI) Activity Restrictions/Additional Instructions: Follow-up in the next week for recheck. Your labs today are reassuring here urine is suspicious for a bladder infection. Take antibiotics until completely gone. Prescription to [facility]. Please return for fevers, lightheadedness or passing out, new chest pain or shortness of breath, worsening abdominal back or flank pain persistent vomiting or other new or concerning symptoms. Prescriptions: New cephalexin 500 mg capsule 500 mg PO BID Qty: 10 RF: 0
--- NOTE | 2020-11-16 12:56 | PC.NURSE ---
Reports brown urine yesterday .
[2020-11-16 12:57] VITALS: BP 128/76; BP 130/78; PULSE 78; PULSE 85; RESP 16; RESP 17; O2SAT 98
[2020-11-16 13:16] LABS: Bacteria Urine Many (>30); Culture Indicated Urine Cult Not Indicated; RBC Urine 1-5/HPF (0-5/HPF); Squamous Epithelial Cell Urine 10-30 /HPF (0-5/HPF); WBC Urine 30-100/HPF (0-5/HPF)
== END 2020-11-16 12:58 | disposition home or self-care (01) ==
PROVIDERS: Emergency Provider Emergency Medicine
DX: N39.0 Urinary tract infection, site not specified (principal); E86.0 Dehydration
CPT/HCPCS: 36415; 80053; 81003; 81015; 81025; 82550; 85025; 96360; 99284

== ENCOUNTER 2020-12-21 14:41 | Emergency (ER) | payer OTHER, MEDICAID, SELFPAY ==
[2020-12-21] VITALS (7 sets, daily range): BP systolic 105–132; BP diastolic 52–79; PULSE 67–89; RESP 14–24; TEMP 37.1; O2SAT 95–100
[2020-12-21 15:13] LABS: Add Manual Diff / Slide Review NO; Basophils Absolute Auto 0 /uL (0-100); Basophils Percent Auto 0.7 % (0-2); Eosinophils Absolute Auto 200 /uL (0-450); Eosinophils Percent Auto 2.9 % (2-4); Hematocrit 39.4 % (36-46); Lymphocytes Absolute Auto 1100 /uL (1100-4500); Lymphocytes Percent Auto 16.1 % (25-40); Mean Corpuscular Hemoglobin 27.1 PG (26-34); Mean Corpuscular Volume 82.3 fL (80-100); Monocytes Absolute Auto 300 /uL (0-900); Monocytes Percent Auto 5.3 % (3-14); Neutrophils Absolute Auto 5000 /uL (1500-7000); Platelet Count 190 X10^3/uL (150-400); Red Blood Cell Count 4.78 X10^6/uL (4.0-5.2); Red Cell Distribution Width 14.3 % (11.6-14.8); White Blood Cell Count 6.6 X10^3/uL (4.5-11.0)
[2020-12-21 15:19] LABS: Alanine Aminotransferase 18 IU/L (<35); Albumin 4.5 g/dL (3.5-5.0); Albumin Globulin Ratio 1.5 (1.0-2.8); Alkaline Phosphatase 46 U/L (38-126); Aspartate Aminotransferase 24 IU/L (14-36); BUN Creatinine Ratio 23.3 (6-22); Bilirubin Total 0.3 mg/dL (0.2-1.3); Blood Urea Nitrogen 20 mg/dL (7-17); Calcium 9.7 mg/dL (8.4-10.2); Carbon Dioxide 26 mmol/L (22-32); Chloride 105 mmol/L (98-107); Estimated Glomerular Filt Rate > 60.0 mL/min (>60); Globulin 3.1 g/dL (1.7-4.1); Glucose 122 mg/dL (70-100); HEMOLYSIS < 15 (0-50); Lipase 26 U/L (23-300); Potassium 3.9 mmol/L (3.4-5.1); Sodium 140 mmol/L (137-145); Total Protein 7.6 g/dL (6.3-8.2)
--- NOTE | 2020-12-21 15:56 | DI.RAD.S_ITS ---
PROCEDURE: XR ACUTE ABDOMEN SERIES INDICATIONS: generalized pain/bloating/constipation TECHNIQUE: One view chest and two views of the abdomen were acquired. COMPARISON: [facility], CT, CT ABDOMEN PELVIS W CON, 04/28/2020, 13:35. FINDINGS: Surgical changes and devices: Incidental note is made of a metallic body ornamentation artifact. Chest: Lungs are clear. Heart size is normal. No pleural effusions. No pneumoperitoneum. Abdomen: Bowel gas pattern is normal. There is a moderate amount of stool seen within the colon. No suspicious calcifications. Visualized solid organ contours appear normal. Bones: No suspicious bony lesions. IMPRESSION: There is a moderate amount of stool seen within the colon, which is consistent with the given history of constipation. Dictated by: Jermain Rodriguez M.D. on 12/21/2020 at 15:16 Approved by: Jermain Rodriguez M.D. on 12/21/2020 at 15:17
--- NOTE | 2020-12-21 18:25 | ED_ITS ---
HPI - General Adult General Chief complaint: Abdominal Pain Stated complaint: Dizzy/constipation/abd pain x4 days Time Seen by Provider: 12/21/20 18:01 Source: patient Mode of arrival: Ambulatory History of Present Illness HPI narrative: Patient is a 40-year-old female who is here for evaluation of approximately 4 days of generalized abdominal discomfort. She states that at baseline she does have issues with constipation and only goes to the bathroom 1 time in a 4-5 day. However over the past couple days she has not been able to have a bowel movement and is only passing small amounts of stool. Over the past couple days her abdomen has been feeling bloated. She now has right-sided abdominal pain and some right flank pain. She was concerned about appendicitis. Has not tried anything for the constipation prior to arrival. She also states she is feeling somewhat dizzy. Related Data Previous Rx's Medication Instructions Recorded cephalexin 500 mg capsule 500 mg PO BID #10 cap 11/16/20 Allergies Allergy/AdvReac Type Severity Reaction Status Date / Time No Known Drug Allergies Allergy Verified 11/16/20 11:21 Review of Systems Constitutional Constitutional: Reports system reviewed and no additional complaints, except as documented Cardiovascular Cardiovascular: Reports system reviewed and no additional complaints, except as documented Respiratory Respiratory: Reports system reviewed and no additional complaints, except as documented Gastrointestinal Gastrointestinal: Reports as per HPI Genitourinary Genitourinary: Reports system reviewed and no additional complaints, except as documented Musculoskeletal Musculoskeletal: Reports system reviewed and no additional complaints, except as documented Integumentary/Breasts Skin/Breast: Reports system reviewed and no additional complaints, except as documented Neurologic Neurologic: Reports system reviewed and no additional complaints, except as documented Hematologic/Lymphatic On Anticoagulants: No Allergic/Immunologic Allergic/Immunologic: Reports system reviewed and no additional complaints, except as documented Patient History Medical History Healthy adult Social History Smoking Status: Current every day smoker Smoking Status: Current every day smoker tobacco type: cigarettes alcohol intake frequency: 3 or more drinks per day Alcohol type: hard liquor Substance Use Type: does not use and methamphetamine Exam Initial Vital Signs Initial Vital Signs: Vital Signs Temperature 98.8 F 12/21/20 14:46 Pulse Rate 89 12/21/20 14:46 Respiratory Rate 22 12/21/20 14:46 Blood Pressure 121/59 L 12/21/20 14:46 Pulse Oximetry 95 12/21/20 14:46 Const General: cooperative, healthy appearing and comfortable [facility] Head: normal to inspection and normocephalic Eyes General: appearance normal, both eyes and all related structures Resp Effort & Inspection: normal respiratory effort Cardio Rate: regular rate GI Inspection: normal to inspection Palpation: soft, No guarding and tender Back/Spine/Pelvis Back: No CVA tenderness Skin General: no rashes or lesions noted Neuro General: patient alert, patient awake, patient oriented x3 and moves all extremities Extrem General: normal to inspection and capillary refill normal Psych Appearance: grossly normal and well kempt Course Orders Ordered: ED Orders 12/21/20 18:26 CT abdomen pelvis w con Stat Discontinued Medications Sodium Chloride (Normal Saline 0.9%) 1,000 mls @ 1,000 mls/hr IV BOLUS ONE Stop: 12/21/20 19:24 Last Infusion: 12/21/20 20:01 Dose: 0 mls/hr Documented by: Admin: 12/21/20 19:10 Dose: 1,000 mls/hr Documented by: IZABEL Vital Signs Vital signs: Vital Signs - 8 hr 12/21/20 19:00 12/21/20 19:30 Pulse Rate 70 67 Respiratory Rate 24 22 Blood Pressure 124/70 116/57 L Pulse Oximetry 98 100 Medical Decision Making Lab Data Lab results reviewed: Yes I reviewed the patient's lab results. Result diagrams: 12/21/20 14:58 12/21/20 14:58 Labs: Lab Results 12/21/20 12/21/20 Range/Units 14:58 14:58 WBC 6.6 (4.5-11.0) X10^3/uL RBC 4.78 (4.0-5.2) X10^6/uL Hgb 13.0 (12.0-16.0) g/dL Hct 39.4 (36-46) % MCV 82.3 (80-100) fL MCH 27.1 (26-34) PG MCHC 33.0 (30-36) % RDW 14.3 (11.6-14.8) % Plt Count 190 (150-400) X10^3/uL Neut % (Auto) 75.0 (50-75) % Lymph % (Auto) 16.1 L (25-40) % [place] % (Auto) 5.3 (3-14) % Eos % (Auto) 2.9 (2-4) % Baso % (Auto) 0.7 (0-2) % Neut # (Auto) 5000 (2807-6911) /uL Lymph # (Auto) 1100 (4725-9680) /uL [place] # (Auto) 300 (0-900) /uL Eos # (Auto) 200 (0-450) /uL Baso # (Auto) 0 (0-100) /uL Sodium 140 (137-145) mmol/L Potassium 3.9 (3.4-5.1) mmol/L Chloride 105 (98-107) mmol/L Carbon Dioxide 26 (22-32) mmol/L BUN 20 H (7-17) mg/dL Creatinine 0.86 (0.52-1.04) mg/dL Estimated GFR > 60.0 (>60) mL/min BUN/Creatinine Ratio 23.3 H (6-22) Glucose 122 H (70-100) mg/dL Calcium 9.7 (8.4-10.2) mg/dL Total Bilirubin 0.3 (0.2-1.3) mg/dL AST 24 (14-36) IU/L ALT 18 (<35) IU/L Alkaline Phosphatase 46 (38-126) U/L Total Protein 7.6 (6.3-8.2) g/dL Albumin 4.5 (3.5-5.0) g/dL Globulin 3.1 (1.7-4.1) g/dL Albumin/Globulin Ratio 1.5 (1.0-2.8) Lipase 26 (23-300) U/L Point of Care Testing Test Results Negative Urine Dip Bedside Urine Glucose Negative Bedside Urine Bilirubin - Negative Bedside Urine Ketone - Negative Urine Specific [place] 1.025 Bedside Urine Occult Blood +++ Bedside Urine pH 6.0 Bedside Urine Protein - Negative Bedside Urine Urobilinogen - Negative Bedside Urine Nitrite - Negative Bedside Urine Leukocytes - Negative Esterase Point of care testing: Point of Care Testing Test Results Negative Urine Dip Bedside Urine Glucose Negative Bedside Urine Bilirubin - Negative Bedside Urine Ketone - Negative Urine Specific [place] 1.025 Bedside Urine Occult Blood +++ Bedside Urine pH 6.0 Bedside Urine Protein - Negative Bedside Urine Urobilinogen - Negative Bedside Urine Nitrite - Negative Bedside Urine Leukocytes - Negative Esterase Imaging Data Abdominal x-ray: Radiologist's Impression: [address] [id number] ReportSigned Patient: Shabbir Ibarra LMR#: [id number]: 1980Acct:[id number]/Sex: 40 / FDate of Service: 12/21/20Loc: EDAccession Number: [id number] Procedure: XR acute abdomen series Ordering Provider: Ivon Sellers D.O. PROCEDURE: XR ACUTE ABDOMEN SERIES INDICATIONS: generalized pain/bloating/constipation TECHNIQUE: One view chest and two views of the abdomen were acquired. COMPARISON: [facility], CT, CT ABDOMEN PELVIS W CON, 04/28/2020, 13:35. FINDINGS: Surgical changes and devices: Incidental note is made of a metallic body ornamentation artifact. Chest: Lungs are clear. Heart size is normal. No pleural effusions. No pneumoperitoneum. Abdomen: Bowel gas pattern is normal. There is a moderate amount of stool seen within the colon. No suspicious calcifications. Visualized solid organ contours appear normal. Bones: No suspicious bony lesions. IMPRESSION: There is a moderate amount of stool seen within the colon, which is consistent with the given history of constipation. Dictated by: Jermain Rodriguez M.D. on 12/21/2020 at 15:16 Approved by: Jermain Rodriguez M.D. on 12/21/2020 at 15:17 CT scan - abdomen/pelvis: Radiologist's Impression: [address] [id number] Scan ReportSigned Patient: Shabbir Ibarra LMR#: [id number]: 1980Acct:[id number]/Sex: 40 / FDate of Service: 12/21/20Loc: EDAccession Number: [id number] Procedure: CT abdomen pelvis w con Ordering Provider: Ryan Ingram D.O. PROCEDURE: CT ABDOMEN PELVIS W CON INDICATIONS: Right lower quadrant abdominal pain TECHNIQUE: After the administration of intravenous contrast, axial sections acquired from the lung bases to the pubic symphysis. Coronal and sagittal reformats were performed. For radiation dose reduction, the following was used: automated exposure control, adjustment of mA and/or kV according to patient size. COMPARISON: [facility], CT, CT ABDOMEN PELVIS W CON, 04/28/2020, 13:35. FINDINGS: Image quality: Excellent. Lung bases: Unremarkable. Heart: No significant findings. ABDOMEN: Liver: Unremarkable. Gallbladder: Unremarkable. Biliary ducts: Unremarkable. Pancreas: Unremarkable. Spleen: Unremarkable. Adrenal Glands: Unremarkable. Kidneys and Ureters: Unremarkable. Stomach and Bowel: Stomach, small bowel loops, and colon are unremarkable. Moderately large fecal debris. Normal appendix, filled with gas. Peritoneum: No abnormal intraperitoneal fluid. No free air. Ventral Wall: No hernias. Abdominal Nodes: No retroperitoneal or mesenteric adenopathy by size criteria. Vessels: Aorta and inferior vena cava are normal in size. Incidental note made of the presence of dilated bilateral gonadal veins. The left gonadal vein is filled with contrast, indicating left gonadal vein reflux. There are bilateral paraovarian varicosities. PELVIS: Pelvic Organs: Unremarkable. Retroverted uterus. Bladder: Unremarkable. Pelvic Nodes: No enlarged lymph nodes. Miscellaneous: No hernias are seen. Bones: Unremarkable. IMPRESSION: 1. Normal appendix. No evidence acute abdominal process. 2. Moderately large fecal load. 3. Note made of left gonadal vein reflux with bilateral paraovarian varicosities. This can correlate with a clinical syndrome of pelvic venous congestion. 4. Retroverted uterus. This is to the right of midline. Dictated by: Scott Perez M.D. on 12/21/2020 at 19:03 Approved by: Scott Perez M.D. on 12/21/2020 at 19:07 ECG Data Attestation: I personally reviewed and interpreted this ECG as follows: Interpretation: Sinus rhythm Ventricular rate is 68 Normal [place] Normal QRS Normal QTC No ST T changes MDM Narrative Medical decision making narrative: Labs are reassuring, urine is reassuring, x- ray consistent with constipation which is confirmed by the CT scan. No sign of any surgical issues. EKG is unremarkable. She has a benign exam. Suspect that her symptoms are related to constipation and we did discuss the use of laxatives at home. Can hold on further workup for now. She was given return precautions and follow-up instructions. She expressed understanding and agreement. Discharge Plan Departure Patient Disposition: Home Clinical Impression: Abdominal pain, Constipation Instructions: DI for Abdominal Pain-Adult, DI for Constipation Activity Restrictions/Additional Instructions: I do recommend that you start taking a laxative such as MiraLax or Mag citrate. You can purchase these [id number]. Your CT scan and labs today are also very reassuring. Contact your primary doctor for a follow-up. Return to the emergency department for any new or worsening symptoms Prescriptions: No Action cephalexin 500 mg capsule 500 mg PO BID Qty: 10 RF: 0
[2020-12-21] MEDS: SODIUM CHLORIDE 0.9% 1,000 ML 1000 ML IV (19:10)
== END 2020-12-21 20:00 | disposition home or self-care (01) ==
PROVIDERS: Emergency Medicine; Emergency Provider Emergency Medicine
DX: R10.9 Unspecified abdominal pain (principal); K59.00 Constipation, unspecified
CPT/HCPCS: 74022; 74177; 80053; 81003; 81025; 83690; 85025; 93005; 96360; 99284

== ENCOUNTER 2023-10-01 19:21 | Emergency (ER) | payer OTHER, MEDICAID, SELFPAY ==
[2023-10-01] VITALS (13 sets, daily range): BP systolic 103–130; BP diastolic 47–74; PULSE 63–82; RESP 18; TEMP 36.6; O2SAT 96–99; BMI 33.5
[2023-10-01 21:16] LABS: Add Manual Diff / Slide Review NO; Basophils Absolute Auto 0 /uL (0-100); Basophils Percent Auto 0.6 % (0-2); Eosinophils Absolute Auto 300 /uL (0-450); Eosinophils Percent Auto 3.9 % (2-4); Hematocrit 37.1 % (36-46); Hemoglobin 12.2 g/dL (12.0-16.0); Lymphocytes Absolute Auto 1200 /uL (1100-4500); Lymphocytes Percent Auto 17.7 % (25-40); Mean Corpuscular HGB Conc 32.9 % (30-36); Mean Corpuscular Hemoglobin 26.2 PG (26-34); Mean Corpuscular Volume 79.7 fL (80-100); Monocytes Absolute Auto 300 /uL (0-900); Monocytes Percent Auto 4.5 % (3-14); Neutrophils Absolute Auto 4800 /uL (1500-7000); Neutrophils Percent Auto 73.3 % (50-75); Platelet Count 216 X10^3/uL (150-400); Red Blood Cell Count 4.66 X10^6/uL (4.0-5.2); Red Cell Distribution Width 15.1 % (11.6-14.8); White Blood Cell Count 6.5 X10^3/uL (4.5-11.0)
[2023-10-01 21:24] LABS: Alanine Aminotransferase 39 IU/L (<35); Albumin 4.4 g/dL (3.5-5.0); Albumin Globulin Ratio 1.8 (1.0-2.8); Alkaline Phosphatase 47 U/L (38-126); Aspartate Aminotransferase 35 IU/L (14-36); BUN Creatinine Ratio 21.3 (6-22); Bilirubin Total 0.6 mg/dL (0.2-1.3); Blood Urea Nitrogen 19 mg/dL (7-17); Calcium 9.3 mg/dL (8.4-10.2); Carbon Dioxide 29 mmol/L (22-32); Chloride 107 mmol/L (98-107); Estimated Glomerular Filt Rate > 60 mL/min (>60); Globulin 2.5 g/dL (1.7-4.1); Glucose 114 mg/dL (70-100); HEMOLYSIS < 15 (0-50); Lipase 27 U/L (23-300); Potassium 4.1 mmol/L (3.4-5.1); Sodium 140 mmol/L (137-145); Total Protein 6.9 g/dL (6.3-8.2)
--- NOTE | 2023-10-01 22:19 | ED.GENADULT ---
HPI - General Adult General Chief complaint: Abdominal Pain Stated complaint: Constipated, Time Seen by Provider: 10/01/23 22:19 Source: patient Mode of arrival: Ambulatory History of Present Illness HPI narrative: 43-year-old woman with no significant medical history presents with a month of right lower quadrant pain radiating into her groin and down into her thigh. She states that she has had problems with chronic constipation and ?has not pooped in a year?. She was seen and evaluated for right lower quadrant abdominal pain at [facility] on August 31 labs are available. She ended up having a CT scan at that time that describes amobile cecum with subjacent inflammatory changes in the abdominal fat. Has a somewhat swirling appearance, the appendix is not visualized and findings may potentially represent ruptured appendicitis of unknown duration. Also possible is epiploic appendagitis or desmoplastic reaction she was given MiraLax and stool softeners and notes that since then she is actually having smaller bowel movements but is having increasing right lower quadrant pain. Shortly after visit at [facility] she describes an episode a severe ripping tearing sensation in the right lower quadrant and since then is also having vaginal tenderness. She has been unable to have sex secondary to pain. She comes in today for further evaluation. She is not describing any back pain, there was no diarrhea, fevers, vomiting, chest pain Related Data Previous Rx's Medication Instructions Recorded cephalexin 500 mg capsule 500 mg PO BID #10 caps 11/16/20 polyethylene glycol 3350(bulk) 1 ea miscellaneous DAILY #238 grams 10/02/23 (Base B, Polyethylene Glycol 3350 granules) Allergies Allergy/AdvReac Type Severity Reaction Status Date / Time No Known Drug Allergies Allergy Verified 11/16/20 11:21 Review of Systems Review of Systems Narrative: Pertinent positive and negative findings as per HPI Patient History Medical History Healthy adult Social History Smoking Status: Current every day smoker Smoking Status: Current every day smoker tobacco type: cigarettes alcohol intake frequency: 3 or more drinks per day Alcohol type: hard liquor Substance Use Type: does not use and methamphetamine Exam Initial Vital Signs Initial Vital Signs: Vital Signs Temperature 98 F 10/01/23 19:25 Pulse Rate 81 10/01/23 19:25 Respiratory Rate 18 10/01/23 19:25 Blood Pressure 130/74 10/01/23 19:25 Pulse Oximetry 97 10/01/23 19:25 Oxygen Delivery Method Room Air 10/01/23 19:25 General: Healthy appearing, significant pain in the right lower quadrant and groin, Able to give a complete and coherent history. HEENT: Moist mucous membranes, normal sclera with reactive pupils, Respiratory: Lungs are clear to auscultation, no wheezing no rales no rhonchi. Full and symmetrical air movement Cardiac: Regular rate and rhythm no murmurs no bruits Abdomen: Soft, tender in the right lower quadrant without rebound or guarding. No flank pain External genital exam is unremarkable. Vaginal introitus is somewhat tender with 1 finger inside the vagina she has significant tenderness along the lateral vaginal wall on the right side over into the pelvic wall, some tenderness knee anterior wall toward her bladder. No obvious uterine descensus or cystocele. No evidence of significant discharge, vesicles or infection. She also has some tenderness over the right groin but it is too tender for more thorough exam possibility of small hernia is there. She does not have inguinal adenopathy. Skin: Warm and dry, no rashes Neurologic: Grossly neurologically intact with no obvious asymmetries or abnormalities Extremities: No trauma, well perfused Psych: Cooperative, appropriate insight and affect Course Orders Ordered: ED Orders 10/01/23 21:00 Complete Blood Count AUTO DIFF Stat Comprehensive Metabolic Panel Stat Lipase Stat 10/01/23 22:34 CT abdomen pelvis w con Stat 10/02/23 00:38 Urine Microscopic Stat Ondansetron HCl (Ondansetron 4 Mg Odt) 4 mg PO NOW PRN PRN Reason: Nausea And Vomiting Ondansetron HCl (Ondansetron 4 Mg/2 Ml Inj) 4 mg IV NOW PRN PRN Reason: Nausea And Vomiting Discontinued Medications Sodium Chloride (Normal Saline 0.9%) 1,000 mls @ 1,000 mls/hr IV BOLUS ONE Stop: 10/01/23 23:34 Last Infusion: 10/02/23 00:32 Dose: Infused Documented By: Infusion: 10/01/23 23:13 Dose: 1,000 mls/hr Documented By: Infusion: 10/01/23 22:49 Dose: 0 mls/hr Documented By: Admin: 10/01/23 22:48 Dose: 1,000 mls/hr Documented By: EUSEBIO Ketorolac Tromethamine (Ketorolac 30 Mg/Ml Vial) 15 mg IV NOW ONE Stop: 10/01/23 22:36 Last Admin: 10/01/23 22:47 Dose: 15 mg Documented By: EUSEBIO Vital Signs Vital signs: Vital Signs - 8 hr 10/01/23 19:25 10/01/23 19:29 10/01/23 19:30 Temperature 98 F Pulse Rate 81 Respiratory Rate 18 Blood Pressure 130/74 130/74 Pulse Oximetry 97 96 Oxygen Delivery Method Room Air 10/01/23 19:30 10/01/23 20:00 10/01/23 21:02 Temperature Pulse Rate 82 73 77 Respiratory Rate Blood Pressure Pulse Oximetry 98 96 99 Oxygen Delivery Method 10/01/23 21:03 10/01/23 21:03 10/01/23 21:30 Temperature Pulse Rate 72 Respiratory Rate Blood Pressure 119/55 L 103/47 L Pulse Oximetry 99 Oxygen Delivery Method 10/01/23 21:30 10/01/23 21:32 10/01/23 21:32 Temperature Pulse Rate 70 71 Respiratory Rate Blood Pressure 109/55 L Pulse Oximetry 97 99 Oxygen Delivery Method 10/01/23 22:00 10/01/23 22:00 10/01/23 22:30 Temperature Pulse Rate 71 65 Respiratory Rate Blood Pressure 125/58 L Pulse Oximetry 97 99 Oxygen Delivery Method 10/01/23 22:31 Temperature Pulse Rate Respiratory Rate 18 Blood Pressure 124/69 Pulse Oximetry Oxygen Delivery Method Medical Decision Making Lab Data 10/01/23 21:00 10/01/23 21:00 Labs: Lab Results 10/01/23 10/02/23 Range/Units 21:00 00:38 WBC 6.5 (4.5-11.0) X10^3/uL RBC 4.66 (4.0-5.2) X10^6/uL Hgb 12.2 (12.0-16.0) g/dL Hct 37.1 (36-46) % MCV 79.7 L (80-100) fL MCH 26.2 (26-34) PG MCHC 32.9 (30-36) % RDW 15.1 H (11.6-14.8) % Plt Count 216 (150-400) X10^3/uL Neut % (Auto) 73.3 (50-75) % Lymph % (Auto) 17.7 L (25-40) % [place] % (Auto) 4.5 (3-14) % Eos % (Auto) 3.9 (2-4) % Baso % (Auto) 0.6 (0-2) % Neut # (Auto) 4800 (3480-1448) /uL Lymph # (Auto) 1200 (9942-6592) /uL [place] # (Auto) 300 (0-900) /uL Eos # (Auto) 300 (0-450) /uL Baso # (Auto) 0 (0-100) /uL Sodium 140 (137-145) mmol/L Potassium 4.1 (3.4-5.1) mmol/L Chloride 107 (98-107) mmol/L Carbon Dioxide 29 (22-32) mmol/L BUN 19 H (7-17) mg/dL Creatinine 0.89 (0.52-1.04) mg/dL Estimated GFR > 60 (>60) mL/min BUN/Creatinine Ratio 21.3 (6-22) Glucose 114 H (70-100) mg/dL Calcium 9.3 (8.4-10.2) mg/dL Total Bilirubin 0.6 (0.2-1.3) mg/dL AST 35 (14-36) IU/L ALT 39 H (<35) IU/L Alkaline Phosphatase 47 (38-126) U/L Total Protein 6.9 (6.3-8.2) g/dL Albumin 4.4 (3.5-5.0) g/dL Globulin 2.5 (1.7-4.1) g/dL Albumin/Globulin Ratio 1.8 (1.0-2.8) Lipase 27 (23-300) U/L Urine RBC 0-1/hpf (0-5/HPF) Urine WBC None seen (0-5/HPF) Ur Squamous Epith Cells 5-10 /hpf H (0-5/HPF) Urine Bacteria Few (2-10) H (None) Urine Mucus 1+ H (Negative) Ur Culture Indicated? Cult not indicated Vol Urine Centrifuged 10ml (spun) Point of Care Testing Test Results Negative Urine Dip Bedside Urine Glucose Negative Bedside Urine Bilirubin - Negative Bedside Urine Ketone - Negative Urine Specific [place] 1.025 Bedside Urine Occult Blood + Bedside Urine pH 6.0 Bedside Urine Protein - Negative Bedside Urine Urobilinogen - Negative Bedside Urine Nitrite - Negative Bedside Urine Leukocytes - Negative Esterase Point of care testing: Point of Care Testing Test Results Negative Urine Dip Bedside Urine Glucose Negative Bedside Urine Bilirubin - Negative Bedside Urine Ketone - Negative Urine Specific [place] 1.025 Bedside Urine Occult Blood + Bedside Urine pH 6.0 Bedside Urine Protein - Negative Bedside Urine Urobilinogen - Negative Bedside Urine Nitrite - Negative Bedside Urine Leukocytes - Negative Esterase MDM Narrative Medical decision making narrative: CC: Right lower quadrant/pelvic/groin pain Complicating co-morbidities: History of methamphetamine use, chronic constipation Data collected from: patient Medical records reviewed: Records from [facility] are reviewed in the HPI above. ER visit on 08/29 with eventual diagnosis of constipation for abdominal pain Differential considered: Inguinal hernia, pelvic abscess Exam documented above, pertinent findings include: Significant tenderness in the right lower quadrant into the groin along the right pelvic sidewall Lab Test results independently reviewed as above. Pertinent findings: CBC does not suggest significant infection, Chemistries are reassuring Imaging studies independently reviewed: Abdominopelvic CT scan does not suggest abscess, hernia, no obvious explanation for her abdominal pain. Incidentally noted moderate amount of stool volume Discussion: Reviewed findings with the patient. Essentially normal CT scan, normal labs. After Toradol she is moving significantly better about the emergency department and is hungry. We talked about doing an entire bowel prep to clean her colon out and then continuing with the 1-2 scoops of MiraLax daily. We also talked about increasing overall fiber. Pain persists my next recommendation would be an OBGYN follow up. Given her persistent severe constipation at some point in the near future colonoscopy may be reasonable follow up for her as well. Questions are answered and she is safe for discharge at this time Discharge Plan Departure Patient Disposition: Home Clinical Impression: Constipation Abdominal pain Qualifiers: Abdominal location: right lower quadrant Qualified Code(s): R10.31 - Right lower quadrant pain Instructions: DI for Abdominal Pain-Adult, DI for Constipation Activity Restrictions/Additional Instructions: Thank you for coming in today Your lab work and CT scan are very reassuring. There is no life-threatening explanation for the severe pain that you are having. There is no abscess, surgical emergency or reason for admission. Despite the use of MiraLax daily you still have quite a bit of stool throughout your colon and I think doing a full bowel preparation as if you would do before colonoscopy may be helpful in getting your colon completely cleaned out. I have given you a prescription for polyethylene glycol. You need to dissolve 238 g in 2 L of water and drink all of that over a couple of hours. Some suggestions for making a bit easier to get all that down include -adding flavored powder or juice mix to the water -making sure that is cold -drinking at through a straw -sucking on lemon slices -sucking on hard candies You should get to the point that there is essentially clear fluid running out of your bottom. From this point I would still recommend 1-2 capfuls of MiraLax daily with a goal of pooping as close to once a day as you can. You may find that taking probiotics can help regulate your gut activity. Increasing fiber will definitely help. Best way to do this is with high-fiber foods however there are multiple fiber supplements that you can buy [id number] as well. If you are still having significant pain I think the next appropriate follow up would be special education para professional. You may also consider a program advisor regarding your chronic constipation. You may benefit from a colonoscopy. Prescriptions: New polyethylene glycol 3350(bulk) [Base B,Polyethylene [id number]] Granules 1 ea miscellaneous DAILY Qty: 238 0RF Rx Instructions: 238 g Dissolve in 2 L of clear liquid, drink 240 mL every 10 minutes until entire volume consumed No Action cephalexin 500 mg capsule 500 mg PO BID Qty: 10 0RF Referrals: Inés,Doctor, MD [Primary Care Provider] - Stand Alone Forms: Patient Portal/API
--- NOTE | 2023-10-01 22:34 | DI.CT.S_ITS ---
PROCEDURE: CT ABDOMEN PELVIS W CON INDICATIONS: RLQ and Right groin pain TECHNIQUE: After the administration of intravenous contrast, axial sections acquired from the lung bases to the pubic symphysis. Coronal and sagittal reformats were performed. For radiation dose reduction, the following was used: automated exposure control, adjustment of mA and/or kV according to patient size. COMPARISON: [facility], CT, CT ABDOMEN PELVIS W CON, 04/28/2020, 13:35. [facility], CT, CT ABDOMEN PELVIS W CON, 12/21/2020, 18:32. FINDINGS: Image quality: Lower Chest: No significant findings. ABDOMEN: Liver: No solid mass. Gallbladder: No radiopaque gallstones or wall thickening. Biliary ducts: No biliary dilation. Pancreas: No ductal dilation. Spleen: Multiple hypodense foci in the spleen which were not seen on the prior exams. Adrenal Glands: Thickening of the left adrenal gland which is unchanged compared to 2020. Kidneys and Ureters: No hydronephrosis. No solid mass. No complex renal cystic lesion which requires follow up. Stomach and Bowel: Normal colonic caliber, without significant wall thickening. Normal appendix. Peritoneum: No abnormal intraperitoneal fluid. No free air. Ventral Wall: No significant ventral hernia. Abdominal Nodes: No retroperitoneal or mesenteric adenopathy by size criteria. Vessels: Aorta and inferior vena cava are normal in size. PELVIS: Pelvic Organs: Small left ovarian cyst measuring 2.2 cm, (2). The uterus is retroverted.. Bladder: No stone. Pelvic Nodes: No enlarged lymph nodes. Miscellaneous: No inguinal hernias are seen. Bones: No aggressive osseous abnormality. IMPRESSION: 1. No acute inflammatory process is identified. No free fluid. Normal appendix. 2. Multiple hypodense foci in the spleen. This was not seen on the prior CTs. Indeterminate. These could represent hamartomas, hemangiomas, infectious abnormality. Less likely malignancy such as lymphoma. MRI abdomen with IV contrast may be helpful for further characterization. 3. Small left ovarian cyst measuring 2.2 cm. Dictated by: Hugh Justin M.D. on 10/02/2023 at 0:39 Approved by: Hugh Justin M.D. on 10/02/2023 at 0:46
[2023-10-01] MEDS: KETOROLAC 30 MG/ML VIAL 15 MG IV (22:47)
[2023-10-01] MEDS: SODIUM CHLORIDE 0.9% 1,000 ML 1000 ML IV (22:48)
[2023-10-02] VITALS: PULSE 63; O2SAT 97
[2023-10-02 00:30] VITALS: PULSE 63; O2SAT 98
[2023-10-02 00:55] LABS: Bacteria Urine Few (2-10); Mucus Urine 1+ (Negative); RBC Urine 0-1/HPF (0-5/HPF); Squamous Epithelial Cell Urine 5-10 /HPF (0-5/HPF); Urine Volume 10mL (spun); WBC Urine None Seen (0-5/HPF)
[2023-10-02 00:56] LABS: Culture Indicated Urine Cult Not Indicated
[2023-10-02 01:30] VITALS: RESP 18; O2SAT 96
[2023-10-02 01:31] VITALS: BP 120/58; RESP 17; O2SAT 98
== END 2023-10-02 01:36 | disposition home or self-care (01) ==
PROVIDERS: Emergency Provider Emergency Medicine
DX: K59.00 Constipation, unspecified (principal); R10.31 Right lower quadrant pain
CPT/HCPCS: 36415; 74177; 80053; 81003; 81015; 81025; 83690; 85025; 99284; J1885; Q9967